=== PATIENT | female | born 1970 | race Caucasian/White ===

== ENCOUNTER → 2020-02-12 12:25 | Outpatient (CLI) | payer BC, SELFPAY ==
--- NOTE | ~2020-02-12 | MM_ITS ---
EXAMINATION: MM screening [facility] w evangelina HISTORY: Screening mammogram TECHNIQUE: Craniocaudal and mediolateral oblique 3-D tomosynthesis images were obtained and synthetic 2-D images were generated. CAD analysis was submitted and interpreted. COMPARISON: 09/03/2018, 08/23/2017, 07/29/2016 bilateral digital screening mammogram examinations BREAST PARENCHYMAL COMPOSITION: The breasts are heterogeneously dense, which may obscure small masses . FINDINGS: Stable circumscribed opacity most consistent with intramammary lymph node in the posterior aspect of the upper outer quadrant of the right breast. Occasional punctate benign microcalcification s. There is no evidence of suspicious mass, calcification, or architectural distortion to suggest mal ignancy in either breast. There has been no suspicious interval change. IMPRESSION: 1. No mammographic evidence of malignancy. 2. Recommend routine screening mammography in one year. BI-RADS Category 2: Benign finding(s). Reviewed, dictated and finalized at location D.
== END ==
PROVIDERS: Visit Provider Obstetrics & Gynecology
DX: Z12.31 Encounter for screening mammogram for malignant neoplasm of breast (principal)
CPT/HCPCS: 77063; 77067

== ENCOUNTER → 2021-03-09 12:33 | Outpatient (CLI) | payer BC, SELFPAY ==
--- NOTE | ~2021-03-09 | MM_ITS ---
EXAMINATION: MM screening [facility] BI w evangelina HISTORY: Screening mammogram TECHNIQUE: Craniocaudal and mediolateral oblique 3-D tomosynthesis images were obtained and synthetic 2-D images were generated. CAD analysis was submitted and interpreted. COMPARISON: 02/12/2020, 09/03/2018 BREAST PARENCHYMAL COMPOSITION: The breasts are heterogeneously dense, which may obscure small masses . FINDINGS: There is no evidence of suspicious mass, calcification, or architectural distortion to sugg est malignancy in either breast. There has been no suspicious interval change. IMPRESSION: 1. No mammographic evidence of malignancy. 2. Recommend routine screening mammography in one year. BI-RADS Category 1: Negative Reviewed, dictated and finalized at location A. GRINDER OPERATOR
== END ==
PROVIDERS: Visit Provider Obstetrics & Gynecology
DX: Z12.31 Encounter for screening mammogram for malignant neoplasm of breast (principal)
CPT/HCPCS: 77063; 77067

== ENCOUNTER → 2022-05-03 15:55 | Outpatient (CLI) | payer BC, SELFPAY ==
--- NOTE | ~2022-05-03 | MM_ITS ---
EXAMINATION: MM screening [facility] BI w evangelina HISTORY: Screening mammogram TECHNIQUE: Craniocaudal and mediolateral oblique 3-D tomosynthesis images were obtained and synthetic 2-D images were generated. CAD analysis was submitted and interpreted. COMPARISON: Serial screening mammograms dating back to 09/03/2018 BREAST PARENCHYMAL COMPOSITION: The breasts are heterogeneously dense, which may obscure small masses . FINDINGS: Stable circumscribed benign-appearing intramammary lymph node in the posterior outer mid ri ght breast, unchanged since 09/03/2018. There is no evidence of suspicious mass, calcification, or arc hitectural distortion to suggest malignancy in either breast. There has been no suspicious interval c hange. IMPRESSION: 1. No mammographic evidence of malignancy. 2. Recommend routine screening mammography in one year. BI-RADS Category 1: Negative Reviewed, dictated and finalized at location A. SERVICE TECHNICIAN
== END ==
PROVIDERS: PCP Internal Medicine; Visit Provider Obstetrics & Gynecology
DX: Z12.31 Encounter for screening mammogram for malignant neoplasm of breast (principal)
CPT/HCPCS: 77063; 77067

== ENCOUNTER → 2023-05-19 12:15 | Outpatient (CLI) | payer BC, SELFPAY ==
--- NOTE | ~2023-05-19 | MM_ITS ---
EXAMINATION: MM screening [facility] BI w evangelina HISTORY: Screening mammogram TECHNIQUE: Craniocaudal and mediolateral oblique 3-D tomosynthesis images were obtained and synthetic 2-D images were generated. CAD analysis was submitted and interpreted. COMPARISON: 05/03/2022, 03/09/2021, 02/12/2020 BREAST PARENCHYMAL COMPOSITION:Dense: The breasts are heterogeneously dense, which may obscure small masses. FINDINGS: No suspicious mass, calcification, or architectural distortion are identified in either aurora ast to suggest malignancy. There has been no suspicious interval change. IMPRESSION: No mammographic evidence of malignancy. Recommend routine screening mammography in one year. BI-RADS Category 1: Negative Reviewed, dictated and finalized at location . DESK OPERATOR
== END ==
PROVIDERS: PCP Obstetrics & Gynecology; Visit Provider Obstetrics & Gynecology
DX: Z12.31 Encounter for screening mammogram for malignant neoplasm of breast (principal)
CPT/HCPCS: 77063; 77067

== ENCOUNTER 2024-05-20 12:16 | Outpatient (CLI) | payer BC, SELFPAY ==
--- NOTE | ~2024-05-20 | MM_ITS ---
EXAMINATION: MM screening [facility] BI w evangelina HISTORY: Screening TECHNIQUE: Craniocaudal and mediolateral oblique 3-D tomosynthesis images were obtained and synthetic 2-D images were generated. CAD analysis was submitted and interpreted. COMPARISON: Comparison to multiple prior studies sequentially, with oldest reviewed study dated 05/2017. BREAST PARENCHYMAL COMPOSITION: Dense: The breasts are heterogeneously dense, which may obscure small masses FINDINGS: There are developing right periareolar breast asymmetries. The left breast is stable withou t evidence for malignancy. IMPRESSION: 1. Developing right breast asymmetries. 2. Additional mammographic views and possible breast ultrasound are recommended. BI-RADS Category 0: Incomplete: Needs additional imaging evaluation. Reviewed, dictated and finalized at location A. S MANAGER IMPRESSION: 1. Developing right breast asymmetries. 2. Additional mammographic views and possible breast ultrasound are recommended . BI-RADS Category 0: Incomplete: Needs additional imaging evaluation.
== END 2024-05-20 12:17 | disposition home or self-care (01) ==
LOC: MICIMG 12:16
PROVIDERS: PCP Obstetrics & Gynecology; Visit Provider Obstetrics & Gynecology
DX: Z12.31 Encounter for screening mammogram for malignant neoplasm of breast (principal); R92.8 Other abnormal and inconclusive findings on diagnostic imaging of breast
CPT/HCPCS: 77063; 77067

== ENCOUNTER 2024-05-30 10:36 | Outpatient (CLI) | payer BC, SELFPAY ==
--- NOTE | ~2024-05-30 | MMUS_ITS ---
EXAMINATION: US breast RT complete, MM diagnostic kellee RT w evangelina HISTORY: Right breast asymmetries on screening mammogram. TECHNIQUE: Additional 3-D tomosynthesis images of the right breast were performed and synthetic 2-D i mages were generated. CAD analysis was submitted and interpreted. High resolution complete right italo st ultrasound was performed. COMPARISON: Comparison to multiple prior studies sequentially, with oldest reviewed study dated 01/23. BREAST PARENCHYMAL COMPOSITION: Dense: The breasts are heterogeneously dense, which may obscure small masses FINDINGS: MAMMOGRAPHIC FINDINGS: Right breast asymmetry in the subareolar location compresses with spot views, likely superimposed fib roglandular tissue. No suspicious masses, calcifications or architectural distortion in the right aur[place] ast to suggest malignancy. There is a small obscured mass in the mid lateral aspect of the right italo st, middle third corresponding to intramammary lymph node seen on ultrasound. ULTRASOUND: Complete US of all 4 quadrants of the right breast/s and retroareolar region was reviewed. At 12:00, 2 cm from the nipple there is a 5 mm cyst. At 9:00, 5 cm from the nipple there is an intramammary lym ph node measuring 7 mm without cortical thickening. Mildly prominent ducts in the subareolar location . IMPRESSION: 1. No evidence for malignancy in the right breast. Benign findings. 2. Routine yearly screening mammogram and regular clinical breast examination are recommended. BI-RADS Category 2: Benign finding(s). Reviewed, dictated and finalized at location B. [employer] MANAGER IMPRESSION: 1. No evidence for malignancy in the right breast. Benign findings. 2. Routine yearly screening mammogram and regular clinical breast examination a re recommended. BI-RADS Category 2: Benign finding(s).
--- OUTSIDE RECORDS SUMMARY | 2024-05-30 10:54 | XMS_ITS | Clinical Summary ---
Author Organization [facility] Address [address] [place] [address] Care Team Providers Care Remedy Developer Name Role Phone Sebastien Amaya MD Primary Care Provider [phone] Allergies Active Allergy Reactions Criticality Noted Date Comments Celecoxib GI Upset Ondansetron Vomiting Medications dicyclomine (BENTYL) 10 MG capsuleIndicatio ns:Irritable bowel syndrome, unspecified type Take 1 capsule (10 mg total) by mouth every 6 (six) hours. 180 capsule 3 4 Active PARoxetine (PAXIL) 10 MG tabletIndication s:Depression TAKE 1 TABLET DAILY. 90 tablet 1 4 Active RESTASIS 0.05 % ophthalmic emulsion Place 1 drop into both eyes 2 (two) times daily. 4 Active Testosterone Powder Apply 1 Dose topically daily. 4 Active omeprazole (PRILOSEC) 20 MG capsuleIndicatio ns:Gastroesophag eal reflux disease, unspecified whether esophagitis present TAKE 1 CAPSULE DAILY 90 capsule 1 4 Active thyroid (ARMOUR THYROID) 90 MG OR TABS tabletIndication s:Hypothyroidism , unspecified type TAKE 1 TABLET BY MOUTH DAILY 90 tablet 3 4 Active Active Problems Problem Noted Date Diagnosed Date Anxiety 11/17/2021 Screening for colon cancer 08/24/2020 Overview (08/24/2020): Added automatically from request for surgery [id number] Herpes simplex 10/22/2013 Hypothyroidism 02/29/2012 Depression 12/01/2011 Tarsal tunnel syndrome 09/02/2010 Encounters Date Type Department Care Team Description 04/02/2024 Telephone [facility] Family [facility] Internal [address] [address] Sebastien Amaya MD Results; Lab Results 03/12/2024 Telephone [facility] [address] [address] Sebastien Amaya MD Lab Results 02/29/2024 7:40 AM WIND TECHNICIAN Laboratory Only [facility] [address] [address] Sebastien Amaya MD 02/29/2024 Travel from Last 3 Months Immunizations Name Administration Dates Next Due Influenza (Generic) 01/22/2019,2018 Family History Medical History Relation Comments MA Father Depression Mother Heart Disease Mother Father also Relation Status Comments Father Mother Social History Tobacco Use Types Packs/Day Years Used Date Smoking Tobacco: Never Smokeless Tobacco: Never Tobacco Cessation:Counseling Given: No Alcohol Use Standard Drinks/Week Comments Yes 0 (1 standard drink = 0.6 oz pur e alcohol) 1 drink a month AUDIT-C Answer Date Recorded Frequency of Alcohol Consumption 2-4 times a mon05/22/2018 Average Number of Drinks 1 or 2 019 Frequency of Binge Drinking Never 04/25 PHQ-2 Answer Date Recorded PHQ-2 Score - If the patient scores above 3, please move on to questions 3-9 0 07/13/2020 Comments No Sex and Gender Information Value Date Recorded Sex Assigned at Female 05/22/2018 8:57 AM WIND TECHNICIAN Legal Sex Female 8:16 PM CDT Gender Identity Female 05/22/2018 8:57 AM WIND TECHNICIAN Sexual Orientation Straight 05/22/2018 8: 57 AM WIND TECHNICIAN Last Filed Vital Signs Vital Sign Reading Time Taken Comments Blood Pressure 104/70 02/14/2024 8:02 AM CDT Pulse 83 02/14/2024 8:02 AM CDT Temperature 36.4 C (97.5 F) 02/14/2024 8:02 AM CDT Respiratory Rate 16 02/14/2024 8:02 AM CDT Oxygen Saturation 93% 02/14/2024 8:02 AM CDT Inhaled Oxygen Concentration - - Weight 72.5 kg (159 lb 14.4 oz) 02/14/2024 8:02 AM CDT Height 179.1 cm (5' 10.5 ) 02/14/2024 8:02 AM CD T Body Mass Index 22.62 02/14/2024 8:02 AM CDT Plan of Treatment Health Maintenance Due Date Last Done Comments Cervical Cancer Screening Pap Smear (Age 30 to 64) Every 3 Years 1969 PHQ-2 (Physician [place]) 1981 Hepatitis C 1987 Hepatitis B Vaccines (1 of 3 - 19+ 3-dose series) 02/23/1988 Cervical Cancer Screening Pap with HPV Testing (Age 30 to 64) Every 5 Years 1999 Cervical Cancer Screening with HPV 1999 PHQ-2 (Physician [place]) 04/24/2024 Mammogram Screening 05/03/2024 05/03/2022, Influenza Adult (#1) 2024 01/22/2019, 02/23/20 18 Postponed from 01/23/2024 (Patient Refused) Annual Physical 02/13/2025 02/14/2024, 11/24, 11/17/2021, Additional history exists COVID-19 Vaccine ( season) 2025 04/29/2021, 08/02/2020, 07/07/2020 Postponed from 12/24/2023 (Patient Refused) DTaP, Tdap and Td Vaccines (1 - Tdap) 02/13/2025 Postponed from 02/23/1988 (Patient Refused) Zoster Vaccines (1 of 2) 02/13/2025 Pos tponed from 2019 (Patient Refused) Colorectal Cancer Screening Colonoscopy (10 Years) 02/08/2031 02/08/2021 Meningococcal B Vaccine Aged Out No l onger eligible based on patient's age to complete this topic Meningococcal Vaccine Aged Out No demi randell eligible based on patient's age to complete this topic Pneumococcal Vaccine: Pediatrics (0 to 5 Years) and At-Risk Patients (6 to 64 Years) Aged Out No longer eligible based on patient's age to complete this topic RSV Immunizations Under 20 Months Aged Out No longer eligible based on patient's age to complete this topic Procedures Procedure Name Priority Date/Time Associated Diagnosis Comments THYROXINE, FREE (FT4) Routine 03/29/2024 7:45 AM WIND TECHNICIAN Acquired hypothyroidism THYROID STIM HORMONE TSH Routine 03/29/2024 7:45 AM WIND TECHNICIAN Acquired hypothyroidism COLLECTION VENOUS BLOOD VENIPUNCTURE Routine 02/29/2024 7:51 AM WIND TECHNICIAN Acquired hypothyroidism Routine general medical examination at a health care facility URINALYSIS, AUTO, COMPLETE Routine 02/29/2024 7:51 AM WIND TECHNICIAN Routine general medical examination at a [facility] facility CBC W/DIFF AUTOMATED Routine 02/29/2024 7:47 AM WIND TECHNICIAN Routine general medical examination at a [facility] facility LIPID PANEL Routine 02/29/2024 7:47 AM WIND TECHNICIAN Routine general medical examination at a [facility] facility COMPREHENSIVE METABOLIC PANEL Routine 02/29/2024 7:47 AM WIND TECHNICIAN Routine general medical examination at a [facility] facility THYROID STIM HORMONE TSH Routine 02/29/2024 7:47 AM WIND TECHNICIAN Acquired hypothyroidism THYROXINE, FREE (FT4) Routine 02/29/2024 7:47 AM WIND TECHNICIAN Acquired hypothyroidism MAMMOGRAM GENERIC (SCAN ORDER) 05/03/2022 from Last 3 Months or Most Recently Relevant to Health Maintenance Results * THYROXINE, FREE (FT4) (03/29/2024 7:45 AM WIND TECHNICIAN) Only the most recent of2 resultswithin the time period is included. FREE T4 0.9 0.8 - 1.8 ng/dL [place] 03/29/2024 7:45 AM WIND TECHNICIAN 03/29/2024 7:50 AM WIND TECHNICIAN Narrative Resulting Agency Comment Performing Organization Information: Site ID: [facility] Address: [address] [place] [address] Director: Linda Erwin Sebastien Amaya MD LABORATORY Final Result Performing Organization Address [facility]/ZIP Co de Phone Number [facility] - KAYLENE ORDERS [facility] [address], * THYROID STIM HORMONE TSH (03/29/2024 7:45 AM WIND TECHNICIAN) Only the most recent of2 resultswithin the time period is included. TSH 0.81 mIU/L [place] Comment: Reference Range > or = 20 Years 0.40-4.50 Ranges First trimester 0.26-2.66 Second trimester 0.55-2.73 Third trimester 0.43-2.91 03/29/2024 7:45 AM WIND TECHNICIAN 03/29/2024 7:50 AM WIND TECHNICIAN Narrative Resulting Agency Comment Performing Organization Information: Site ID: Name: [facility] Address: [address] [place] [id number] Director: Linda Erwin Sebastien Amaya MD LABORATORY Final Result Performing Organization Address [facility] Co de Phone Number [facility] David MAURICE ORDERS [facility] [address], * (ABNORMAL) URINALYSIS (02/29/2024 7:51 AM WIND TECHNICIAN) COLOR (U) YELLOW 02/29/2024 3:01 PM WIND TECHNICIAN [facility] TRANSPARENCY CLEAR CLEAR 02/29/2024 3:01 PM WIND TECHNICIAN [facility] [place] [facility] SPECIFIC GRAVITY (U) 1.010 1.003 - 1.040 02/29/2024 3:01 PM WIND TECHNICIAN [facility] U PH 7.0 5.0 - 9.0 02/29/2024 3:01 PM WIND TECHNICIAN [facility] [place] [facility] PROTEIN RANDOM (U) NEGATIVE NEGATIVE 02/29/2024 3:01 PM WIND TECHNICIAN [facility] GLUCOSE (U) NEGATIVE NEGATIVE 02/29/2024 3:01 PM WIND TECHNICIAN [facility] KETONES MG/DL (U) NEGATIVE NEGATIVE 02/29/2024 3:01 PM WIND TECHNICIAN [facility] BILIRUBIN (U) NEGATIVE NEGATIVE 02/29/2024 3:01 PM [facility] BLOOD (U) NEGATIVE NEGATIVE 02/29/2024 3:01 PM WIND TECHNICIAN [facility] UROBILINOGEN 0.2 0.0 - 2.0 EU/DL 02/29/2024 3:01 PM [facility] NITRITES NEGATIVE NEGATIVE 02/29/2024 3:01 PM [facility] LEUKOCYTES (U) NEGATIVE NEGATIVE 02/29/2024 3:01 PM [facility] RBC/HPF 0-3 0 - 3 /HPF 02/29/2024 3:01 PM [facility] WBC/HPF 0-3 0 - 3 /HPF 02/29/2024 3:01 PM [facility] EPI/HPF 20-30 /HPF 02/29/2024 3:01 PM [facility] BACTERIA (U) 1+(A) NONE SEEN 02/29/2024 3:01 PM [facility] URINE SPECIMEN OBTAINED BY CLEAN CATCH PROCEDURE / Unknown 02/29/2024 7:51 AM WIND TECHNICIAN Sebastien Amaya MD URINE ORDERABLES Final Result [facility] HERO [address] [place] [address], * (ABNORMAL) COMPREHENSIVE METABOLIC PANEL (02/29/2024 7:47 AM WIND TECHNICIAN) SODIUM S/P/B 141 136 - 145 MMOL/L 02/29/2024 3:08 PM [facility] POTASSIUM S/P/B 4.5 3.5 - 5.1 MMOL/L 02/29/2024 3:08 PM [facility] CHLORIDE S/P/B 104 98 - 107 MMOL/L 02/29/2024 3:08 PM [facility] CO2 27.0 21 - 32 MMOL/L 02/29/2024 3:08 PM [facility] GLUCOSE 91 70 - 99 MG/DL 02/29/2024 3:08 PM [facility] BUN 17 7 - 18 MG/DL 02/29/2024 3:08 PM [facility] CREATININE S/P/B 0.80 0.55 - 1.02 MG/DL 02/29/2024 3:08 PM [facility] CALCIUM S/P/B 9.1 8.4 - 10.5 MG/DL 02/29/2024 3:08 PM [facility] BILIRUBIN TOTAL S/P/B 0.7 0.2 - 1.0 MG/DL 02/29/2024 3:08 PM [facility] ALKALINE PHOSPHATASE S/P/B 59 41 - 108 U/L 02/29/2024 3:08 PM [facility] AST 16 15 - 37 U/L 02/29/2024 3:08 PM [facility] ALT 23 14 - 59 U/L 02/29/2024 3:08 PM [facility] TOTAL PROTEIN S/P/B 7.0 6.4 - 8.2 G/DL 02/29/2024 3:08 PM [facility] ALBUMIN S/P/B 3.7 3.4 - 5.0 G/DL 02/29/2024 3:08 PM [facility] ANION GAP 10.0 5 - 15 MMOL/L 02/29/2024 3:08 PM [facility] Comment:REFERENCE RANGE NOT ESTABLISHED OSMOLALITY (CALC) 293 MOSM/KG 024 3:08 PM [facility] Comment:REFERENCE RANGE NOT ESTABLISHED GFR ESTIMATE 87(L) >90 ML/MIN/1. 73 M2 02/29/2024 3:08 PM [facility] GFR NOTES GFR REFERENCE S: 02/29/2024 3:08 PM [facility] [place] [facility] Comment: THE ESTIMATED GFR IS CALCULATED USING THE 2020 CKD-EPI EQUATION. THE FOLLOWING CATEGORIES FOR GRADING RENAL FUNCTION ARE RECOMMENDED BY THE INTERNATIONAL SOCIETY OF NEPHROLOGY (KDIGO 2012 CLINICAL PRACTICE GUIDELINE). G1,NORMAL OR HIGH: >89 ml/min/1.73 m2 G2,MILDLY DECREASED: 60-89 ml/min/1.73 m2 G3A,MILDLY TO MODERATELY DECREASED: 45-59 ml/min/1.73 m2 G3B,MODERATELY TO SEVERELY DECREASED: 30-44 ml/min/1.73 m2 G4,SEVERELY DECREASED: 15-29 ml/min/1.73 m2 G5,KIDNEY FAILURE: <15 ml/min/1.73 m2 02/29/2024 7:47 AM WIND TECHNICIAN us Sebastien Amaya MD LABORATORY Final Result [facility] [place] [address] [place] [address], * (ABNORMAL) LIPID PANEL (02/29/2024 7:47 AM WIND TECHNICIAN) CHOLESTEROL 247(H) <200 MG/DL 02/29/2024 3:08 PM [facility] TRIGLYCERIDES 64 <150 MG/DL 02/29/2024 3:08 PM [facility] HDL 69 >40 MG/DL 02/29/2024 3:08 PM [facility] LDL-C 165(H) <100 MG/DL 02/29/2024 3:08 PM [facility] VLDL CALCULATION 13 5 - 28 MG/DL 02/29/2024 3:08 PM [facility] CHOL/HDL RATIO 3.6 0.0 - 4.0 02/29/2024 3:08 PM [facility] LDL/HDL 2.4(H) 0.41 - 2.13 02/29/2024 3:08 PM WIND TECHNICIAN [facility] NON HDL CHOLESTEROL 178(H) <140 MG/DL 02/29/2024 3:08 PM WIND TECHNICIAN [facility] 02/29/2024 7:47 AM WIND TECHNICIAN us Sebastien Amaya MD LABORATORY Final Result [facility] [address] [place] [address], * (ABNORMAL) CBC W/DIFF AUTOMATED (02/29/2024 7:47 AM WIND TECHNICIAN) WBC 3.70(L) 4.00 - 10.80 x10'3/uL 02/29/2024 2:15 PM WIND TECHNICIAN [facility] RBC 4.44 4.10 - 5.40 x10'6/uL 02/29/2024 2:15 PM WIND TECHNICIAN [facility] HGB 14.6 12.0 - 16.0 G/DL 02/29/2024 2:15 PM [facility] HCT 43.3 36.0 - 47.0 % 02/29/2024 2:15 PM WIND TECHNICIAN [facility] MCV 97.5 78.0 - 100.0 FL 02/29/2024 2:15 PM WIND TECHNICIAN [facility] MCH 32.9(H) 27.0 - 31.0 PG 02/29/2024 2:15 PM WIND TECHNICIAN [facility] MCHC 33.7 33.0 - 36.0 G/DL 02/29/2024 2:15 PM [facility] RDW 11.5 11.5 - 14.5 % 02/29/2024 2:15 PM [facility] PLT 228 150 - 350 x10'3/uL 02/29/2024 2:15 PM [facility] MPV 11.5(H) 7.4 - 10.4 FL 02/29/2024 2:15 PM [facility] DIFFERENTIAL TYPE AUTOMATED DIFFERENTIAL 02/29/2024 2:15 PM [facility] NEUTROPHILS % 55.7 % 02/29/2024 2:15 PM [facility] LYMPHOCYTES % 29.7 % 02/29/2024 2:15 PM [facility] MONOCYTES % 11.9 % 02/29/2024 2:15 PM [facility] EOSINOPHILS % 1.9 % 02/29/2024 2:15 PM [facility] BASOPHILS % 0.8 % 02/29/2024 2:15 PM [facility] IMMATURE GRANS % 0.0 % 02/29/2024 2:15 PM [facility] ABS. NEUTROPHILS 2.06 1.60 - 8.30 x10'3/uL 02/29/2024 2:15 PM [facility] ABS. LYMPHOCYTES 1.10 0.80 - 4.70 x10'3/uL 02/29/2024 2:15 PM [facility] ABS. MONOCYTES 0.44 0.00 - 1.50 x10'3/uL 02/29/2024 2:15 PM [facility] ABS. EOSINOPHILS 0.07 0.00 - 0.40 x10'3/uL 02/29/2024 2:15 PM [facility] ABS. BASOPHILS 0.03 0.00 - 0.20 x10'3/uL 02/29/2024 2:15 PM [facility] ABS. IMMATURE GRANULOCYTES 0.00 0.00 - 0.03 x10'3/uL 02/29/2024 2:15 PM WIND TECHNICIAN [facility] 02/29/2024 7:47 AM WIND TECHNICIAN Sebastien Amaya MD LABORATORY Final Result [facility] [address] [place] [address], * MAMMOGRAM GENERIC (05/03/2022) Anatomical Region Laterality Modality Other 05/03/2022 [facility] Scanned SCANNING Final Resu lt from Last 3 Months or Most Recently Relevant to Health Maintenance Insurance [facility] Care Teams Remedy Developer Relationship Specialty Start Date End Date Sebastien Amaya MD [address] [place] [address] PCP - General 03/07/16
--- OUTSIDE RECORDS SUMMARY | 2024-05-30 10:55 | XMS_ITS | Data Portability ---
Author Organization [place] [facility] Address [address] [place] [address] Assessment No assessment recorded. Plan of Treatment Reminders Order Date Submit Date Provider Last Modified By Organization Details Last Modified Time Details Appointments None record ed. Lab None record ed. Referral None record ed. Procedures None record ed. Surgeries None record ed. Imaging None record ed. Medication Orders None record ed. Patient TargetsNo targets recorded. Patient InstructionsNo instructions recorded. Reason for Referral None Reported. Medical Equipment None Reported. Medications Name Sig Start Date Stop Date Status Note LastModified by Organization Details LastModified Time paroxetine 10 mg tablet active Not Available Not Available No t Available azithromycin 250 mg tablet active Not Available Not Availabl e Not Available cefadroxil 500 mg capsule active Not Available Not Available N ot Available oxycodone-acet aminophen 5 mg-325 mg tablet active Not Available Not Available Not Available Vitals None Recorded Social History None recorded. Functional Status None recorded. Mental Status None recorded. Family History Nothing Reported. Medical History No medical history recorded. Gynecological HistoryNo gynecological history recorded. Obstetrics History GPAL:G 0 P 0 0 0 0 Past Encounters Encounter ID Performer Location Encounter Start Date Encounter Closed Date Diagnosis/Indication Diagnosis SNOMED-CT Code Diagnosis ICD10 Code Diagnosis Note 0 [facility] [address] [facility] [address], [place] [address] 02/08/2016 15:49:33 02/08/2016 17:52:43 [id number] [facility] [id number] [facility] [address], [place] [address] 03/14/2016 11:52:05 03/14/2016 11:52:27 [id number] [facility] [id number] [facility] [address], [place] [address] 03/16/2016 11:29:38 03/16/2016 11:58:26 [id number] [facility] [id number] [facility] [address], [place] [address] 03/29/2016 15:14:32 03/29/2016 16:32:51 Health Concerns Section Related Observation LastModified by Organization Detai ls LastModified Time None Recorded Concern Status LastModified by Organization Details LastModified Time None Recorded Advance Directives Directive None Recorded Payers Encounter Date Sequence Insurance Name Policy Number Policy Hernandez Covered Member ID Hernandez Member ID Guarantor Name 02/08/2016 1 [place] [id number] Cheryl A Robert [id number] Cheryl A Robert 03/09/2016 1 [place] [id number] Cheryl A Robert [id number] Cheryl A Robert 03/16/2016 1 [place] [id number] Cheryl A Robert [id number] Cheryl A Robert 03/29/2016 1 [place] [id number] Cheryl A Robert [id number] Cheryl A Robert OBGyn Episode No OBEpisode recorded.
--- OUTSIDE RECORDS SUMMARY | 2024-05-30 10:55 | XMS_ITS | Encounter Summary ---
Author Organization [facility] Address [address] [place] [address] Care Team Providers Care Medical Resident Name Role Phone Sebastien Amaya MD Primary Care Provider [phone] Encounter Details Date Type Department Care Team (Late st Contact Info) Description 09/28/[address] [facility] [place], [place] [id number] aPul Manning MD [address] [id number] Social History Tobacco Use Types Packs/Day Years Used Date Smoking Tobacco: Never Smokeless Tobacco: Never Alcohol Use Standard Drinks/Week Comments Yes 0 (1 standard drink = 0.6 oz pur e alcohol) AUDIT-C Answer Date Recorded Frequency of Alcohol Consumption 2-4 times a mon05/22/2018 Average Number of Drinks 1 or 2 019 Frequency of Binge Drinking Never 04/25 PHQ-2 Answer Date Recorded PHQ-2 Score - If the patient scores above 3, please move on to questions 3-9 0 07/13/2020 Comments No Sex and Gender Information Value Date Recorded Sex Assigned at Female 05/22/2018 8:57 AM STEM ASSEMBLER Legal Sex Female 8:16 PM CDT Gender Identity Female 05/22/2018 8:57 AM STEM ASSEMBLER Sexual Orientation Straight 05/22/2018 8: 57 AM STEM ASSEMBLER documented as of this encounter Plan of Treatment Not on file documented as of this encounter Visit Diagnoses Diagnosis Encounter for screening colonoscopy- Primary Special screening for malignant neoplasms, colon documented in this encounter Care Teams Medical Resident Relationship Specialty Start Date End Date Sebastien Amaya MD [address] [place] [address] PCP - General 03/07/16 documented as of this encounter
== END 2024-05-30 10:37 | disposition home or self-care (01) ==
PROVIDERS: PCP Obstetrics & Gynecology; Visit Provider Obstetrics & Gynecology
DX: N64.89 Other specified disorders of breast (principal)
CPT/HCPCS: 76641; 77061; 77065; G0279